=== PATIENT | male | born 1985 | race American Indian/Alaskan Native ===

== ENCOUNTER 2020-10-07 21:58 | Emergency (ER) | payer OTHER ==
[2020-10-07 22:40] VITALS: BP 166/103
[2020-10-07] MEDS ORDERED: ACETAMINOPHEN 500 MG TAB PO ONE (22:40)
[2020-10-08] MEDS ORDERED: IBUPROFEN 600 MG TAB PO ONE (01:27)
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
== END 2020-10-08 02:45 | disposition home or self-care (01) ==
LOC: ED 21:58
DX: M62.838 Other muscle spasm (principal); M54.2 Cervicalgia; M62.830 Muscle spasm of back; M54.5 Low back pain; M54.6 Pain in thoracic spine; G89.29 Other chronic pain; Z79.899 Other long term (current) drug therapy; V89.2XXA Person injured in unspecified motor-vehicle accident, traffic, initial encounter; Y92.89 Other specified places as the place of occurrence of the external cause; Y92.488 Other paved roadways as the place of occurrence of the external cause; Y99.8 Other external cause status
CPT/HCPCS: 72040; 72100; 99283